=== PATIENT | male | born 1970 | race Caucasian/White ===

== ENCOUNTER 2019-09-24 09:20 | Day surgery (SDC) | payer MEDICAID ==
[~2019-09-24] VITALS: Ht 170.2 cm; Wt 70.5 kg
[~2019-09-24 09:20] MED LIST: SODIUM CHLORIDE 0.9% 1,000 ML IV ONE; SODIUM CHLORIDE 0.9% 1,000 ML ONE
[2019-09-24] MEDS ORDERED: PROPOFOL 1% 20 ML VIAL IVP ONE (12:00)
[2019-09-24] MEDS ORDERED: LIDOCAINE 1% 10 ML VIAL INJ ONE (12:00)
== END 2019-09-24 12:00 | disposition home or self-care (01) ==
LOC: SURGERY 09:20
PROVIDERS: ATTEND Internal Medicine Gastroenterology
DX: R10.13 Epigastric pain (principal); K29.50 Unspecified chronic gastritis without bleeding; Z90.49 Acquired absence of other specified parts of digestive tract; Z98.890 Other specified postprocedural states; Z83.3 Family history of diabetes mellitus; Z82.49 Family history of ischemic heart disease and other diseases of the circulatory system
CPT/HCPCS: 43239; 88305; 88312; 88313; C1769; J2704; J3490; J7030